=== PATIENT | male | born 1960 | race Caucasian/White ===

== ENCOUNTER 2018-08-02 14:24 | Emergency (ER) | payer SELFPAY ==
[2018-08-02] MEDS: ACETAMINOPHEN 500 MG TAB PO (17:52)
== END 2018-08-02 18:57 | disposition home or self-care (01) ==
LOC: FTE 14:24
DX: S40.212A Abrasion of left shoulder, initial encounter (principal); I10 Essential (primary) hypertension; R51 Headache; V49.49XA Driver injured in collision with other motor vehicles in traffic accident, initial encounter
CPT/HCPCS: 70450; 70486; 73030; 73060; 99284-25